=== PATIENT | male | born 1985 | race Caucasian/White ===

== ENCOUNTER 2021-05-23 14:12 | Emergency (ER) | payer MEDICAID, OTHER ==
[~2021-05-23] VITALS: Ht 175.3 cm; Wt 163.6 kg
[2021-05-23 14:45] LABS: BASOPHILS % (AUTO) 0.5 % (0-1); EOSINOPHILS # (AUTO) 0.2 X10'3 (0-0.9); EOSINOPHILS % (AUTO) 2.5 % (0-6); HEMOGLOBIN 15.4 g/dl (14.0-17.9); LYMPHOCYTES # (AUTO) 1.2 X10'3 (1.1-4.8); MEAN CORPUSCULAR HEMOGLOBIN 28.7 PG (27.0-31.0); MEAN CORPUSCULAR HGB CONC 33.6 g/dL (33.0-36.5); MEAN CORPUSCULAR VOLUME 85.5 FL (78-98); MEAN PLATELET VOLUME 9.4 FL (7.4-10.4); MONOCYTES # (AUTO) 0.9 X10'3 (0-0.9); MONOCYTES % (AUTO) 9.7 % (2-12); NEUTROPHILS # (AUTO) 6.6 X10'3 (1.8-7.7); NEUTROPHILS % (AUTO) 74.3 % (42-75); PLATELET COUNT 205 X10'3 (140-440); RED BLOOD COUNT 5.38 X10'6 (4.70-6.10); WHITE BLOOD COUNT 8.9 X10'3 (4.5-11.0)
[2021-05-23 15:02] LABS: ALANINE AMINOTRANSFERASE 540 U/L (12-78); ALBUMIN 3.5 G/DL (3.4-5.0); ALBUMIN/GLOBULIN RATIO 0.8 (1.1-1.5); ALKALINE PHOSPHATASE 163 IU/L (46-116); ANION GAP 7 (8-16); BILIRUBIN,TOTAL 2.5 MG/DL (0.1-1.0); BLOOD UREA NITROGEN 8 MG/DL (7-18); BUN/CREATININE RATIO 8.2 (5.4-32.0); CALCIUM 8.4 MG/DL (8.5-10.1); CHLORIDE 104 MMOL/L (99-107); CREATININE 0.97 MG/DL (0.60-1.10); GLUCOSE 116 MG/DL (70-104); LIPASE 100 U/L (73-393); SODIUM 141 MMOL/L (135-145); TOTAL CARBON DIOXIDE 29.8 MMOL/L (24-32); TOTAL PROTEIN 8.1 G/DL (6.4-8.2); eGFR 88 ML/MIN
[2021-05-23 15:09] LABS: ASPARTATE AMINO TRANSFERASE 386 U/L (10-37); POTASSIUM 4.7 MMOL/L (3.5-5.1)
[2021-05-23 20:27] LABS: CLARITY,URINE CLEAR (Clear); COLOR,URINE AMBER (Yellow); UA COLLECTION TYPE CLN CATCH MIDSTREAM
[2021-05-23 20:30] LABS: RBC,URINE NONE SEEN /HPF (0-2); WBC,URINE 0-4 /HPF (0-4)
[2021-05-23 20:31] LABS: BACTERIA,URINE NONE SEEN /HPF (Neg); MUCUS STRANDS NONE SEEN /LPF (Neg); SQUAMOUS EPITHELIAL CELL,UR FEW /LPF (FEW)
[2021-05-23 21:35] VITALS: BP 142/87
== END 2021-05-23 21:37 | disposition home or self-care (01) ==
LOC: ER 14:13
DX: R10.13 Epigastric pain (principal); R10.11 Right upper quadrant pain; R94.5 Abnormal results of liver function studies; E80.7 Disorder of bilirubin metabolism, unspecified; I10 Essential (primary) hypertension; Z72.89 Other problems related to lifestyle
CPT/HCPCS: 36415; 76700; 80053; 80329; 81001; 83690; 85025; 85610; 99284

== ENCOUNTER 2021-06-13 17:48 | Inpatient (IN) | payer MEDICAID, OTHER ==
[~2021-06-13] VITALS: Ht 177.8 cm; Wt 165.9 kg
[2021-06-13 19:06] LABS: BASOPHILS # (AUTO) 0.1 X10'3 (0-0.2); BASOPHILS % (AUTO) 0.6 % (0-1); EOSINOPHILS # (AUTO) 0.2 X10'3 (0-0.9); EOSINOPHILS % (AUTO) 1.9 % (0-6); HEMATOCRIT 39.5 % (42.0-52.0); HEMOGLOBIN 13.3 g/dl (14.0-17.9); LYMPHOCYTES # (AUTO) 5.1 X10'3 (1.1-4.8); LYMPHOCYTES % (AUTO) 54.2 % (21-51); MEAN CORPUSCULAR HEMOGLOBIN 28.7 PG (27.0-31.0); MEAN CORPUSCULAR HGB CONC 33.7 g/dL (33.0-36.5); MEAN CORPUSCULAR VOLUME 85.2 FL (78-98); MEAN PLATELET VOLUME 8.6 FL (7.4-10.4); MONOCYTES # (AUTO) 0.9 X10'3 (0-0.9); MONOCYTES % (AUTO) 10.1 % (2-12); NEUTROPHILS # (AUTO) 3.1 X10'3 (1.8-7.7); NEUTROPHILS % (AUTO) 33.2 % (42-75); PLATELET COUNT 161 X10'3 (140-440); RED BLOOD COUNT 4.64 X10'6 (4.70-6.10); RED CELL DISTRIBUTION WIDTH 13.9 % (11.5-14.5); WHITE BLOOD COUNT 9.4 X10'3 (4.5-11.0)
[2021-06-13 19:11] LABS: ALANINE AMINOTRANSFERASE 80 U/L (12-78); ALBUMIN/GLOBULIN RATIO 0.7 (1.1-1.5); ALKALINE PHOSPHATASE 81 IU/L (46-116); ANION GAP 5 (8-16); ASPARTATE AMINO TRANSFERASE 48 U/L (10-37); BLOOD UREA NITROGEN 7 MG/DL (7-18); BUN/CREATININE RATIO 5.9 (5.4-32.0); CHLORIDE 104 MMOL/L (99-107); CREATININE 1.18 MG/DL (0.60-1.10); GLUCOSE 113 MG/DL (70-104); LIPASE 81 U/L (73-393); POTASSIUM 3.4 MMOL/L (3.5-5.1); SODIUM 139 MMOL/L (135-145); TOTAL CARBON DIOXIDE 30.5 MMOL/L (24-32); TOTAL PROTEIN 7.2 G/DL (6.4-8.2); eGFR 70 ML/MIN
[2021-06-13 19:20] LABS: CLARITY,URINE CLEAR (Clear); COLOR,URINE YELLOW (Yellow); UA COLLECTION TYPE CLN CATCH MIDSTREAM
[2021-06-13 19:21] LABS: GLUCOSE, URINE NEGATIVE (Neg); KETONES,URINE TRACE mg/dl (Neg); LEUKOCYTE ESTERASE ,URINE NEGATIVE (Neg); NITRITES, URINE NEGATIVE (Neg); OCCULT BLOOD,URINE NEGATIVE (Neg); PROTEIN,URINE NEGATIVE (Neg); UROBILINOGEN,URINE >=8.0 E.U/dL (0.2-1.0)
[2021-06-13 20:45] LABS: NEUTROPHILS % (MANUAL) 27 % (42-75); TOTAL CELLS COUNTED 100
[2021-06-13 20:46] LABS: BANDS% (MANUAL) 4 % (0-10); EOSINOPHILS % (MANUAL) 4 % (0-6); LYMPHOCYTES % (MANUAL) 35 % (21-51); MONOCYTES % (MANUAL) 11 % (2-12)
[2021-06-13 20:47] LABS: PLATELET ESTIMATE NORMAL; REACTIVE LYMPHOCYTES % 19 % (0-0)
[2021-06-14] MEDS ORDERED: iohexol 300mg/ml 100ml inj. ONE (00:17)
[2021-06-14] MEDS ORDERED: pantoprazole 40 MG vial IV ONE (00:25)
[2021-06-14] MEDS: pantoprazole 40MG/NS 100ML BAG 100 ML IV SCH ×5 (00:57→23:31)
[2021-06-14 00:58] LABS: ETHANOL < 0.010 GM/DL (0.0-0.010)
[2021-06-14 03:03] LABS: BASOPHILS # (AUTO) 0.1 X10'3 (0-0.2); BASOPHILS % (AUTO) 0.6 % (0-1); EOSINOPHILS # (AUTO) 0.1 X10'3 (0-0.9); EOSINOPHILS % (AUTO) 1.2 % (0-6); HEMATOCRIT 38.4 % (42.0-52.0); HEMOGLOBIN 13.1 g/dl (14.0-17.9); LYMPHOCYTES # (AUTO) 4.4 X10'3 (1.1-4.8); LYMPHOCYTES % (AUTO) 50.1 % (21-51); MEAN CORPUSCULAR HEMOGLOBIN 28.9 PG (27.0-31.0); MEAN CORPUSCULAR HGB CONC 34.2 g/dL (33.0-36.5); MEAN CORPUSCULAR VOLUME 84.6 FL (78-98); MEAN PLATELET VOLUME 9.1 FL (7.4-10.4); MONOCYTES # (AUTO) 1.1 X10'3 (0-0.9); MONOCYTES % (AUTO) 12.5 % (2-12); NEUTROPHILS # (AUTO) 3.1 X10'3 (1.8-7.7); NEUTROPHILS % (AUTO) 35.6 % (42-75); PLATELET COUNT 157 X10'3 (140-440); RED BLOOD COUNT 4.54 X10'6 (4.70-6.10); RED CELL DISTRIBUTION WIDTH 13.9 % (11.5-14.5); WHITE BLOOD COUNT 8.9 X10'3 (4.5-11.0)
[2021-06-14 03:19] LABS: D-DIMER 3.87 MG/L FEU (0-0.50)
[2021-06-14] MEDS ORDERED: magnesium hydroxide 30ml (MOM) UD suspension PO PRN (04:40)
[2021-06-14] MEDS ORDERED: HYDROcodone/acetaminophen 5mg/325mg tablet PO PRN (04:40)
[2021-06-14] MEDS ORDERED: mag hydrox/Alum hydrox/simeth 30ml oral suspension PO PRN (04:40)
[2021-06-14] MEDS ORDERED: acetaminophen 325mg tablet PO PRN (04:40)
[2021-06-14] MEDS ORDERED: ondansetron/PF 4mg/2ml inj IV PRN (04:40)
--- NOTE | 2021-06-14 05:00 | NUR ---
ROUNDED ON PT; NO CHANGE IN CONDITION; RESTING PEACEFULLY WITH VSS; WILL CTM
[2021-06-14] MEDS: docusate sod 100mg capsule PO SCH ×2 (06:54→19:58)
[2021-06-14] MEDS ORDERED: FAMO20TA8 PO (08:59)
[2021-06-14] MEDS ORDERED: PERFLUTREN PROTEIN-A MICROSPHR (Optison) 0.22 MG/ML 3ML VIAL IV PRN (10:00)
[2021-06-14] MEDS ORDERED: lactulose 20gm/30ml cup PO ONE (11:00)
--- NOTE | 2021-06-14 23:28 | NUR ---
PATIENT ARRIVED ON THE UNIT WITH NO COMPLAINTS. RESTING WITH NO SIGN OF DISTRESS.
[2021-06-15] VITALS: BP 154/96
[2021-06-15] MEDS: pantoprazole 40MG/NS 100ML BAG 100 ML IV SCH ×2 (01:00→05:39)
--- NOTE | 2021-06-15 06:08 | NUR ---
Problems reprioritized. Patient report given, questions answered & plan of care reviewed with PHILL SHAVER.
[2021-06-15 06:49] LABS: EOSINOPHILS # (AUTO) 0.1 X10'3 (0-0.9); HEMOGLOBIN 12.2 g/dl (14.0-17.9); MONOCYTES # (AUTO) 0.8 X10'3 (0-0.9)
[2021-06-15 06:51] LABS: BASOPHILS % (AUTO) 0.5 % (0-1); EOSINOPHILS % (AUTO) 1.5 % (0-6); HEMATOCRIT 36.6 % (42.0-52.0); LYMPHOCYTES # (AUTO) 4.6 X10'3 (1.1-4.8); LYMPHOCYTES % (AUTO) 55.1 % (21-51); MEAN CORPUSCULAR HEMOGLOBIN 28.4 PG (27.0-31.0); MEAN CORPUSCULAR HGB CONC 33.5 g/dL (33.0-36.5); MONOCYTES % (AUTO) 10.1 % (2-12); NEUTROPHILS # (AUTO) 2.7 X10'3 (1.8-7.7); NEUTROPHILS % (AUTO) 32.8 % (42-75); PLATELET COUNT 159 X10'3 (140-440); RED CELL DISTRIBUTION WIDTH 14.3 % (11.5-14.5); WHITE BLOOD COUNT 8.4 X10'3 (4.5-11.0)
--- NOTE | 2021-06-15 06:51 | NUR ---
Patient in room [facility]. I have received report from pru RN and had the opportunity to ask questions and assume patient care.
[2021-06-15 07:05] LABS: ALANINE AMINOTRANSFERASE 72 U/L (12-78); ALBUMIN 2.5 G/DL (3.4-5.0); ALBUMIN/GLOBULIN RATIO 0.6 (1.1-1.5); ALKALINE PHOSPHATASE 71 IU/L (46-116); ANION GAP 7 (8-16); ASPARTATE AMINO TRANSFERASE 47 U/L (10-37); BILIRUBIN,TOTAL 0.8 MG/DL (0.1-1.0); BLOOD UREA NITROGEN 9 MG/DL (7-18); BUN/CREATININE RATIO 7.4 (5.4-32.0); CALCIUM 8.1 MG/DL (8.5-10.1); CHLORIDE 104 MMOL/L (99-107); CREATININE 1.21 MG/DL (0.60-1.10); GLUCOSE 107 MG/DL (70-104); POTASSIUM 3.4 MMOL/L (3.5-5.1); SODIUM 141 MMOL/L (135-145); TOTAL CARBON DIOXIDE 29.8 MMOL/L (24-32); TOTAL PROTEIN 6.5 G/DL (6.4-8.2); eGFR 68 ML/MIN
[2021-06-15 08:00] VITALS: BP 139/83
[2021-06-15] MEDS: docusate sod 100mg capsule PO SCH (08:00)
--- NOTE | 2021-06-15 12:36 | NUR ---
PAGER ID: [phone] MESSAGE: [phone] René is COVID is Neg. Sarah [phone]
[2021-06-15] MEDS ORDERED: iohexol 350MG/ML 100ml bottle IV ONE (14:47)
[2021-06-15] MEDS ORDERED: PANT-47 PO (15:14)
[2021-06-15] MEDS ORDERED: HYDR-3965 PO (15:14)
--- NOTE | 2021-06-15 15:16 | NUR ---
patient quite agitated wanting to leave. IV to right AC infiltrated, removed in tact. Two attempts made to replace IV as DR Dumont ordered CTA. patient pulled arm away in mid insertion then refused to have any other IV placed. DR Dumont paged
--- NOTE | 2021-06-15 16:33 | NUR ---
DR sarah approved for patient to be DC. did not have CTA due to patients refusal to have IV replaced. All Dc instructions given to patient, specifically recommended to not participate in impact sports. . All Dc instructions given to patient. patient DC home via private car to home with friend.
== END 2021-06-15 15:49 | disposition home or self-care (01) | DRG 663 ==
LOC: ER 17:49 → UNDOADMIN 06-14 04:36 → ED HOLD 06-14 04:36 → SUR 3N 06-14 23:00 → ED HOLD 06-14 23:00
PROVIDERS: ADMIT Internal Medicine; ATTEND Family Medicine
PROC: BW211ZZ Computerized Tomography (CT Scan) of Abdomen and Pelvis using Low Osmolar Contrast (ICD-10-PCS; principal; 2021-06-14)
DX: D73.5 Infarction of spleen (principal); Z68.43 Body mass index [BMI] 50.0-59.9, adult; E66.01 Morbid (severe) obesity due to excess calories; I10 Essential (primary) hypertension; Z20.822 Contact with and (suspected) exposure to COVID-19; T50.995A Adverse effect of other drugs, medicaments and biological substances, initial encounter; X58.XXXA Exposure to other specified factors, initial encounter; Y93.89 Activity, other specified; Y92.89 Other specified places as the place of occurrence of the external cause; Y99.8 Other external cause status
CPT/HCPCS: 36415; 71045; 74177; 80053; 80320; 81003; 83690; 85007; 85025; 85379; 85610; 86885; 86900; 86901; 87040; 87081; 87635; 93306; 99285; C9113; G0378; Q9967

== ENCOUNTER 2022-04-13 09:56 | Emergency (ER) | payer MEDICAID ==
[~2022-04-13] VITALS: Ht 175.3 cm; Wt 175.0 kg
[~2022-04-13 09:56] MED LIST: HYDR-3965 PO; PANT-47 PO
[2022-04-13 10:03] VITALS: BP 178/100
--- NOTE | 2022-04-13 10:17 | NUR ---
DR CABALLERO IN TO SEE ASSESS PATIENT IN TRIAGE. Addendum: 04/13/22 at 1017 by ARTEMIO Patient refused pain medication at this time.
[2022-04-13 10:32] LABS: BASOPHILS # (AUTO) 0.1 X10'3 (0-0.2); BASOPHILS % (AUTO) 0.4 % (0-1); EOSINOPHILS # (AUTO) 0.2 X10'3 (0-0.9); EOSINOPHILS % (AUTO) 1.9 % (0-6); HEMATOCRIT 46.6 % (42.0-52.0); HEMOGLOBIN 15.8 g/dl (14.0-17.9); LYMPHOCYTES # (AUTO) 3.6 X10'3 (1.1-4.8); MEAN CORPUSCULAR HEMOGLOBIN 29.1 PG (27.0-31.0); MEAN CORPUSCULAR HGB CONC 33.9 g/dL (33.0-36.5); MEAN CORPUSCULAR VOLUME 85.8 FL (78-98); MONOCYTES # (AUTO) 0.9 X10'3 (0-0.9); MONOCYTES % (AUTO) 7.7 % (2-12); NEUTROPHILS # (AUTO) 7.3 X10'3 (1.8-7.7); PLATELET COUNT 208 X10'3 (140-440); RED BLOOD COUNT 5.43 X10'6 (4.70-6.10); RED CELL DISTRIBUTION WIDTH 13.9 % (11.5-14.5); WHITE BLOOD COUNT 12.1 X10'3 (4.5-11.0)
[2022-04-13 10:54] LABS: ALANINE AMINOTRANSFERASE 43 U/L (12-78); ALBUMIN 3.8 G/DL (3.4-5.0); ALBUMIN/GLOBULIN RATIO 0.8 (1.1-1.5); ALKALINE PHOSPHATASE 107 IU/L (46-116); ANION GAP 7 (8-16); ASPARTATE AMINO TRANSFERASE 24 U/L (10-37); BILIRUBIN,TOTAL 0.4 MG/DL (0.1-1.0); BLOOD UREA NITROGEN 12 MG/DL (7-18); BUN/CREATININE RATIO 12.8 (5.4-32.0); CALCIUM 9.2 MG/DL (8.5-10.1); CHLORIDE 105 MMOL/L (99-107); CREATININE 0.94 MG/DL (0.60-1.10); GLUCOSE 105 MG/DL (70-104); LIPASE 102 U/L (73-393); SODIUM 139 MMOL/L (135-145); TOTAL CARBON DIOXIDE 26.7 MMOL/L (24-32); TOTAL PROTEIN 8.6 G/DL (6.4-8.2); eGFR 90 ML/MIN
[2022-04-13 11:01] LABS: POTASSIUM 4.1 MMOL/L (3.5-5.1)
[2022-04-13 11:50] LABS: CLARITY,URINE CLEAR (Clear); COLOR,URINE YELLOW (Yellow); GLUCOSE, URINE NEGATIVE (Neg); KETONES,URINE NEGATIVE (Neg); LEUKOCYTE ESTERASE ,URINE NEGATIVE (Neg); NITRITES, URINE NEGATIVE (Neg); OCCULT BLOOD,URINE NEGATIVE (Neg); PROTEIN,URINE NEGATIVE (Neg); UROBILINOGEN,URINE 0.2 E.U/dL (0.2-1.0)
[2022-04-13 11:55] LABS: UA COLLECTION TYPE VOIDED
[2022-04-13] MEDS ORDERED: iohexol 300mg/ml 100ml inj. ONE (12:25)
[2022-04-13] MEDS ORDERED: acetaminophen 325mg tablet PO ONE (15:15)
[2022-04-13] MEDS ORDERED: ibuprofen tablet 400 MG TABLET PO ONE (15:15)
== END 2022-04-13 15:50 | disposition home or self-care (01) ==
LOC: ER 09:56
DX: K80.50 Calculus of bile duct without cholangitis or cholecystitis without obstruction (principal); I10 Essential (primary) hypertension; Z79.899 Other long term (current) drug therapy
CPT/HCPCS: 36415; 74177; 76700; 80053; 81003; 83690; 85025; 99285; J3490; J7030; Q9967

== ENCOUNTER 2022-12-07 08:23 | Emergency (ER) | payer MEDICAID ==
[~2022-12-07] VITALS: Ht 177.8 cm; Wt 181.0 kg
[2022-12-07 09:04] LABS: BASOPHILS % (AUTO) 0.5 % (0-1); EOSINOPHILS # (AUTO) 0.1 X10'3 (0-0.9); EOSINOPHILS % (AUTO) 1.3 % (0-6); HEMATOCRIT 44.9 % (42.0-52.0); HEMOGLOBIN 14.8 g/dl (14.0-17.9); LYMPHOCYTES # (AUTO) 3.3 X10'3 (1.1-4.8); LYMPHOCYTES % (AUTO) 42.3 % (21-51); MEAN CORPUSCULAR HEMOGLOBIN 27.8 PG (27.0-31.0); MEAN CORPUSCULAR HGB CONC 33.1 g/dL (33.0-36.5); MEAN CORPUSCULAR VOLUME 84.1 FL (78-98); MEAN PLATELET VOLUME 8.3 FL (7.4-10.4); MONOCYTES # (AUTO) 0.7 X10'3 (0-0.9); MONOCYTES % (AUTO) 9.1 % (2-12); NEUTROPHILS # (AUTO) 3.7 X10'3 (1.8-7.7); NEUTROPHILS % (AUTO) 46.8 % (42-75); PLATELET COUNT 170 X10'3 (140-440); RED BLOOD COUNT 5.33 X10'6 (4.70-6.10); RED CELL DISTRIBUTION WIDTH 14.8 % (11.5-14.5); WHITE BLOOD COUNT 7.9 X10'3 (4.5-11.0)
[2022-12-07 09:24] LABS: ALANINE AMINOTRANSFERASE 42 U/L (12-78); ALBUMIN 3.7 G/DL (3.4-5.0); ALBUMIN/GLOBULIN RATIO 0.7 (1.1-1.5); ALKALINE PHOSPHATASE 89 IU/L (46-116); ANION GAP 5 (8-16); ASPARTATE AMINO TRANSFERASE 26 U/L (10-37); BILIRUBIN,TOTAL 0.5 MG/DL (0.1-1.0); BLOOD UREA NITROGEN 16 MG/DL (7-18); BUN/CREATININE RATIO 15.1 (5.4-32.0); CALCIUM 9.1 MG/DL (8.5-10.1); CHLORIDE 104 MMOL/L (99-107); CREATININE 1.06 MG/DL (0.60-1.10); GLUCOSE 119 MG/DL (70-104); LIPASE 85 U/L (73-393); SODIUM 140 MMOL/L (135-145); TOTAL CARBON DIOXIDE 30.7 MMOL/L (24-32); TOTAL PROTEIN 8.8 G/DL (6.4-8.2); eGFR 78 ML/MIN
[2022-12-07] MEDS ORDERED: ondansetron/PF 4mg/2ml inj IV ONE (10:55)
[2022-12-07] MEDS ORDERED: morphine 4 MG/ML inj SYRINge IV ONE (10:55)
[2022-12-07] MEDS ORDERED: normal saline 1000ML IV soln IVB ONE (10:55)
[2022-12-07 11:07] LABS: CLARITY,URINE CLEAR (Clear); COLOR,URINE YELLOW (Yellow); GLUCOSE, URINE NEGATIVE (Neg); KETONES,URINE NEGATIVE (Neg); LEUKOCYTE ESTERASE ,URINE NEGATIVE (Neg); NITRITES, URINE NEGATIVE (Neg); OCCULT BLOOD,URINE NEGATIVE (Neg); PH,URINE 7.5 (4.8-8.0); PROTEIN,URINE NEGATIVE (Neg); UROBILINOGEN,URINE 0.2 E.U/dL (0.2-1.0)
[2022-12-07 11:11] LABS: UA COLLECTION TYPE VOIDED
[2022-12-07] MEDS ORDERED: iohexol 300mg/ml 100ml inj. ONE (11:12)
--- NOTE | 2022-12-07 11:22 | NUR ---
I AGREE WITH THE ASSESSMENT PERFORMED BY [address] LVN
[2022-12-07 12:20] VITALS: BP 155/90
[2022-12-07] MEDS ORDERED: ketorolac trometh. 30mg/ml inj. IV ONE (12:55)
== END 2022-12-07 13:49 | disposition home or self-care (01) ==
LOC: ER 08:23
DX: K80.51 Calculus of bile duct without cholangitis or cholecystitis with obstruction (principal); I10 Essential (primary) hypertension
CPT/HCPCS: 36415; 74177; 76700; 80053; 81003; 83690; 85025; 96361; 96374; 96375; 99285; J1885; J2270; J2405; J3490; J7030; Q9967